=== PATIENT | male | born 1940 | race Caucasian/White ===

== ENCOUNTER → 2019-02-04 | Outpatient (CLI) | payer MEDICARE, BC | END | disposition home or self-care (01) | LOC: PCVCCLINIC 16:00 | PROVIDERS: ATTEND Internal Medicine | DX: E78.5 Hyperlipidemia, unspecified (principal) | CPT/HCPCS: 36415; 80061 ==

== ENCOUNTER → 2019-03-15 | Outpatient (CLI) | payer MEDICARE, BC ==
--- NOTE | 2019-03-15 15:45 | PCVCIMAG ---
APPROVED REPORT Study performed: 03/15/2019 14:06:44 EXAM: Comprehensive 2D, Doppler, and color-flow Echocardiogram Patient Location: Echo lab Status: routine BSA: 2.74 HR: 68 bpmBP: 172/86 mmHg Rhythm: NSR Other Information Study Quality: Adequate Risk Factors: Cardiac Risk Factors: HTN Indications COPD CVA/TIA Palpitations 2D Dimensions IVSd: 10.13 (7-11mm) LVDd: 48.35 mm PWd: 10.30 (7-11mm)Ascending Ao: 43.81 (22-36mm) LVDs: 32.03 (25-40mm) Left Atrium: 39.43 (27-40mm) Aortic Root: 37.16 mm LV Single Plane 4CH: 48.71 % LV Single Plane 2CH: 50.46 % Biplane EF: 50.6 % Volumes Left Atrial Volume (Systole) Single Plane 4CH: 88.08 mLSingle Plane 2CH: 99.82 mL LA ESV Index: 35.00 mL/m2 Aortic Valve AoV Peak Andrés.: 1.81 m/s AO Peak Gr.: 13.06 mmHgLVOT Max P.18 mmHg LVOT Max V: 1.02 m/s Mitral Valve E/A Ratio: 1.4 MV Decel. Time: 230.27 ms MV E Max Andrés.: 1.00 m/s MV A Andrés.: 0.71 m/s IVRT: 117.65 ms Pulmonary Valve PV Peak Andrés.: 0.97 m/sPV Peak Gr.: 3.78 mmHg Pulmonary Vein P Vein S: 0.50 m/sP Vein A: 0.32 m/s P Vein D: 0.66 m/sP Vein A Dur.: 134.9 msec P Vein S/D Ratio: 0.76 Tricuspid Valve TR Peak Andrés.: 2.46 m/s TR Peak Gr.: 24.26 mmHg Left Ventricle The left ventricle is normal size. There is normal LV segmental wall motion. There is normal left ventricular wall thickness. Left ventricular systolic function is within lower limits of normal. LVEF is 50-55%. Grade I - abnormal relaxation pattern. Right Ventricle The right ventricle is normal size. The right ventricular systolic function is normal. Atria The left atrium size is normal. The right atrium size is normal. Aortic Valve The aortic valve is normal in structure. Mild aortic regurgitation. There is no aortic valvular stenosis. Mitral Valve The mitral valve is normal in structure. There is no mitral valve regurgitation noted. No evidence of mitral valve stenosis. Tricuspid Valve The tricuspid valve is normal in structure. Mild tricuspid regurgitation with PAP of 31 mmHg. Pulmonic Valve The pulmonary valve is normal in structure. Trace pulmonic regurgitation. Great Vessels The aortic root is normal in size. IVC is normal in size and collapses >50% with inspiration. Pericardium There is no pericardial effusion. There is no pleural effusion. <Conclusion> The left ventricle is normal size. LVEF is 50-55%. The aortic valve is normal in structure. Mild aortic regurgitation. The mitral valve is normal in structure. The tricuspid valve is normal in structure. Mild tricuspid regurgitation with PAP of 31 mmHg. There is no pericardial effusion. There is no pleural effusion.
== END | disposition home or self-care (01) ==
LOC: PCVCIMAG 14:41
PROVIDERS: ATTEND Internal Medicine
DX: I08.2 Rheumatic disorders of both aortic and tricuspid valves (principal); G45.9 Transient cerebral ischemic attack, unspecified; I10 Essential (primary) hypertension; E78.5 Hyperlipidemia, unspecified
CPT/HCPCS: 93005; 93306; G0463